=== PATIENT | male | born 1955 | race Caucasian/White ===

== ENCOUNTER 2023-09-17 17:44 | Emergency (ER) | payer OTHER ==
[2023-09-17] MEDS ORDERED: Ibuprofen 200 MG TAB ONE (19:48)
== END 2023-09-17 20:20 ==
LOC: NAV ERS 17:44
DX: S00.12XA Contusion of left eyelid and periocular area, initial encounter (principal); S30.0XXA Contusion of lower back and pelvis, initial encounter; S20.211A Contusion of right front wall of thorax, initial encounter; S80.02XA Contusion of left knee, initial encounter; I10 Essential (primary) hypertension; Y04.0XXA Assault by unarmed brawl or fight, initial encounter
CPT/HCPCS: 70450; 70486; 72100

== ENCOUNTER 2023-12-25 14:56 | Emergency (ER) | payer OTHER ==
[2023-12-25] MEDS ORDERED: Ketorolac Tromethamine 30 MG (1 mL) VIAL ONE (15:48)
== END 2023-12-25 17:10 ==
LOC: NAV ERS 14:56 → EEVIPCON 14:56 → NAV ERS 17:10
DX: S22.41XA Multiple fractures of ribs, right side, initial encounter for closed fracture (principal); S16.1XXA Strain of muscle, fascia and tendon at neck level, initial encounter; S40.011A Contusion of right shoulder, initial encounter; I10 Essential (primary) hypertension; J44.9 Chronic obstructive pulmonary disease, unspecified; E11.9 Type 2 diabetes mellitus without complications; E78.5 Hyperlipidemia, unspecified; Z79.899 Other long term (current) drug therapy; W51.XXXA Accidental striking against or bumped into by another person, initial encounter
CPT/HCPCS: 72125; 96372; J1885